=== PATIENT | female | born 1980 | race Caucasian/White ===

== ENCOUNTER → 2016-11-09 | Outpatient (CLI) | payer OTHER ==
[~2016-11-09] MED LIST: LEVO112T2 PO; MULT-516 PO
== END ==
LOC: STAR 13:34
PROVIDERS: ATTEND Surgery
DX: Z02.9 Encounter for administrative examinations, unspecified (principal)

== ENCOUNTER → 2017-06-16 | Outpatient (CLI) | payer OTHER ==
[~2017-06-16] MED LIST changes: +CALC0.5C9 PO; +CALC1TAB68 PO; +HYDR-3240 PO; +LEVO137T2 PO
== END ==
LOC: STAR 09:23
PROVIDERS: ATTEND Surgery
DX: Z02.9 Encounter for administrative examinations, unspecified (principal)

== ENCOUNTER 2017-06-20 08:02 | Inpatient (IN) | payer OTHER ==
[~2017-06-20] VITALS: Ht 165.1 cm; Wt 60.0 kg
[~2017-06-20 08:02] MED LIST changes: +BUPIVACAINE/PF 0.5% ONE; -CALC0.5C9 PO; -CALC1TAB68 PO; +EPINEPHRINE 1 MG/ML, 1ML ONE; -HYDR-3240 PO
[2017-06-20 08:40] VITALS: BP 109/72
[2017-06-20] MEDS ORDERED: LIDOCAINE 1%, 2ML ONE (08:53)
[2017-06-20] MEDS ORDERED: LIDOCAINE 1%, 2ML SQ PRN (09:00)
[2017-06-20 09:16] LABS: HCG UR SG 1.012 (1.003-1.030)
[2017-06-20] MEDS: LACTATED RINGERS 1,000 ML IV SCH ×2 (11:10→11:18)
[2017-06-20] MEDS ORDERED: FENTANYL PF 250 MCG/5ML ONE (12:00)
[2017-06-20] MEDS ORDERED: MIDAZOLAM 1 MG/ML, 2ML ONE (12:00)
[2017-06-20] MEDS ORDERED: ROCURONIUM 10MG/ML,5ML ONE (12:35)
[2017-06-20] MEDS ORDERED: SUCCINYLCHOLINE 20 MG/ML, 10ML ONE (12:35)
[2017-06-20] MEDS ORDERED: DEXAMETHASONE 4 MG/ML, 1ML ONE (12:35)
[2017-06-20] MEDS ORDERED: PROPOFOL 10 MG/ML, 20ML ONE (12:35)
[2017-06-20] MEDS ORDERED: ONDANSETRON 2MG/ML, 2ML ONE (12:35)
[2017-06-20] MEDS ORDERED: ONDANSETRON 2MG/ML, 2ML IVPush PRN ×2 (13:30→17:00)
[2017-06-20] MEDS ORDERED: OXYcodone 5 MG/5 ML ORAL.SOL UDC PO PRN (13:30)
[2017-06-20] MEDS ORDERED: LABETALOL 5MG/ML, 20ML IV PRN (13:30)
[2017-06-20] MEDS ORDERED: hydrALAzine 20 MG/ML, 1ML IV PRN ×2 (13:30→16:00)
[2017-06-20] MEDS ORDERED: METOCLOPRAMIDE 5 MG/ML, 2ML IV PRN (13:30)
[2017-06-20] MEDS ORDERED: ACETAMINOPHEN 325 MG TABLET PO PRN ×2 (13:30→16:00)
[2017-06-20] MEDS ORDERED: HYDROmorphone 2 MG/ML, 1ML ONE (14:16)
[2017-06-20] MEDS: HYDROmorphone 1 MG/ML, 1ML IV PRN ×3 (14:17→14:39)
[2017-06-20] MEDS ORDERED: FENTANYL PF 100 MCG/2ML ONE (14:32)
[2017-06-20] MEDS: FENTANYL PF 100 MCG/2ML IV PRN ×2 (14:33→14:45)
[2017-06-20] MEDS ORDERED: ACETAMINOPHEN 650 MG SUPP PR PRN (16:00)
[2017-06-20] MEDS: HYDROcodone/APAP 5/325 TABLET PO PRN ×2 (16:56→21:09)
[2017-06-20] MEDS: CALCIUM/VITAMIN D3 250-125 TABLET PO SCH ×2 (16:56→21:09)
[2017-06-20 19:32] VITALS: BP 114/76
[2017-06-21 00:15] VITALS: BP 97/57
[2017-06-21 04:23] VITALS: BP 107/73
[2017-06-21 05:22] LABS: CALCIUM 7.7 mg/dL (8.5-10.1)
[2017-06-21] MEDS ORDERED: LEVOTHYROXINE 137 MCG TABLET PO SCH (06:00)
[2017-06-21 07:52] VITALS: BP 103/67
[2017-06-21] MEDS ORDERED: CALCITRIOL 0.5 MCG CAPSULE PO SCH (09:00)
[2017-06-21] MEDS ORDERED: CALCIUM/VITAMIN D3 250-125 TABLET PO ONE (09:00)
[2017-06-21] MEDS: CALCIUM/VITAMIN D3 250-125 TABLET PO SCH (10:10)
[2017-06-21] MEDS ORDERED: HYDR-3240 PO (15:26)
[2017-06-21] MEDS ORDERED: CALC0.5C9 PO (15:26)
[2017-06-21] MEDS ORDERED: CALC1TAB68 PO (15:27)
== END 2017-06-21 15:40 | disposition home or self-care (01) | DRG 627 ==
LOC: OUT 08:02 → 4NOR 15:30 → OUT 15:31 → 4NOR 15:31 → DCLOUNGE 06-21 15:23
PROVIDERS: ADMIT Surgery; ATTEND Surgery
PROC: 4A1134G Monitoring of Peripheral Nervous Electrical Activity, Intraoperative, Percutaneous Approach (ICD-10-PCS; 2017-06-20)
PROC: 0GTK0ZZ Resection of Thyroid Gland, Open Approach (ICD-10-PCS; principal; 2017-06-20 10:00)
DX: E04.2 Nontoxic multinodular goiter (principal); E83.51 Hypocalcemia; E03.9 Hypothyroidism, unspecified; Z91.013 Allergy to seafood; E06.5 Other chronic thyroiditis; R13.19 Other dysphagia
CPT/HCPCS: 36415; 81025; 82310; 83970; 88307; J0171; J1100; J1170; J2250; J2405; J2704; J3010; J3490; C1760; J0330; J7120